=== PATIENT | male | born 1975 | race Caucasian/White ===

== ENCOUNTER 2019-08-22 15:29 | Emergency (ER) | payer OTHER, SELFPAY ==
[2019-08-22 15:30] VITALS: BP 137/86; PULSE 73; RESP 16; TEMP 36.9; O2SAT 99; BMI 34.5
--- NOTE | 2019-08-22 15:36 | EKG12_ITS ---
Test Reason : CP Blood Pressure : / mmHG Vent. Rate : 076 BPM Atrial Rate : 076 BPM P-R Int : 164 ms QRS Dur : 086 ms QT Int : 362 ms P-R-T Axes : 056 039 022 degrees QTc Int : 407 ms Normal sinus rhythm Normal ECG Confirmed by MORRIS ALFARO, ARGENIS ([id number]), assistant production editor BROOKS STACK ([id number]) on 08/26/2019 3:16:59 PM Referred By: LISA Confirmed By:CARSON CACERES MD
--- NOTE | 2019-08-22 15:37 | ED.DCSUM_ITS ---
History of Present Illness Chief Complaint: Dizziness Informant: Patient Onset: Today Context: Gradual Onset Timing: Intermittent Current Severity: Mild Maximum Severity: Moderate Narrative: The patient is a 43-year-old male with medical history significant for cochlear implant who is not on any daily medication that presents to the emergency department with chest pain and dizziness that has since resolved. The patient states that he woke this morning. He states that he had some tightness in his chest that was nonradiating. He states he also felt lightheaded. He states he still went to work, but today just has not felt himself. He denies any exertional component to his chest pain. He has no history of coronary vascular disease. He does not take any medications and does not smoke. He states over the past few months, he has been more fatigued, but attributed it to his age. He denies orthopnea, weight gain, or leg edema. Prior similar symptoms: No Recent Illness/Hospitalization: No Past Medical History - Allergies and Home Meds Allergies/Adverse Reactions: Allergies No Known Allergies Allergy (Verified 08/22/19 15:58) Primary Care Physician: Care Physician,No Primary [Primary Care Provider] - Prior records reviewed: Yes Past Medical History: None Surgical History: noncontributory Smoking Status: Unknown if ever smoked Review of Systems General: Denies: Chills, Fever, Sweats Eyes: Denies: Visual changes - bilaterally, Diplopia ENT: Denies: Rhinorrhea, Sore throat Cardiovascular: Reports: Chest pain. Denies: Palpitations Respiratory: Denies: Dyspnea, Cough, Dyspnea on exertion Gastrointestinal: Reports: Nausea. Denies: Abdominal pain, Vomiting, Diarrhea, Melena, Hematochezia Genitourinary: Denies: Dysuria, Hematuria, Frequency Musculoskeletal: Denies: Back pain, Extremity Pain Skin: Denies: Rash, Wounds Neurological: Denies: Headache, Weakness, Numbness Physical Exam Vital Signs/Narrative: Vital Signs Temp Pulse Resp BP Pulse Ox 08/22/19 15:30 98.4 F 73 16 137/86 H 99 Inital Vital Signs reviewed: Yes General: Well nourished, Well developed, No Acute Distress Head: Normocephalic, Atraumatic Eyes: Perrl, EOMI ENT: Moist mucous membranes, No rhinorrhea Neck: Supple, Nontender Cardiovascular: Regular rate, Regular rhythm, No murmurs Respiratory: No distress, CTA bilaterally, Chest nontender Abdomen: Soft, Nontender, Nondistended, Normal bowel sounds Back: Nontender, Normal Inspection Extremities: Nontender, No edema Skin: Normal color, No rash Neurological: Alert, Oriented x3, Cranial nerves II-XII grossly intact, Normal Strength, Normal Sensation Psychological: Normal affect, Normal Mood Diagnostic/Tx/Re-eval Clinical Impression(s) from Imaging Studies Chest X-Ray 08/22/19 15:40 IMPRESSION: Normal x-ray examination of the chest. Electronically Signed: Kyler Elkins MD at 16:48 EDT , Service support , Abnormal Lab Results 08/22/19 08/22/19 15:50 15:50 WBC 9.0 RBC 5.31 Hgb 15.6 Hct 45.8 MCV 86.3 MCH 29.4 MCHC 34.1 RDW Std Deviation 37.7 RDW Coeff of Rosie 12.0 Plt Count 258 MPV 10.3 Immature Gran % (Auto) 0.300 Neut % (Auto) 70.9 H Lymph % (Auto) 20.4 [place] % (Auto) 7.4 Eos % (Auto) 0.8 Baso % (Auto) 0.2 Absolute Neuts (auto) 6.3 Absolute Lymphs (auto) 1.83 Nucleated RBC % 0 Sodium 140 Potassium 3.7 Chloride 107 Carbon Dioxide 27.0 Anion Gap 6 BUN 11 Creatinine 0.99 Estim Creat Clear Calc 100.36 Est GFR (MDRD) Af Amer 106 Est GFR (MDRD) Non-Af 88 BUN/Creatinine Ratio 11.1 Glucose 92 Calcium 9.1 Magnesium 2.3 Troponin I < 0.015 TSH 0.83 - Rhythm Strip Rhythm Strip: Sinus Rhythm Ectopy: None - EKG Initial EKG Interpretation: Sinus Rhythm, No Acute Injury Pattern Prior: No Prior - Medical Decision Making The patient presents to the emergency department chest pain that is since resol waldemar. He said that he was mildly nauseated and dizzy with it. It was nonradiating. He denies any fevers or chills. EKG was obtained which was sinus rhythm without acute ischemic change. The patient has a heart score of 1. He has been pain-free since this morning. His cardiac enzymes are negative. Chest x-ray shows no evidence of volume overload. Metabolic work-up including TSH and magnesium was unremarkable. On reevaluation, the patient is feeling improved. At this point, I do feel it is safe for outpatient follow-up. He will be discharged home. Impression 1. Transient chest pain-resolved ED Disposition - Plan for ED Patient: Instructions: ED Dizziness [facility] Referrals: Care Physician,No Primary [Primary Care Provider] -
--- NOTE | 2019-08-22 15:40 | RAD_ITS ---
STUDY: X-RAY CHEST REASON FOR EXAM: Male, 43 years old. cp, dizziness this am TECHNIQUE: AP portable COMPARISON: August 06, 2014 FINDINGS: The lungs are clear and expanded. There is no demonstrated pleural abnormality. Normal size heart. Normal mediastinum and kamila. Normal visualized pulmonary arteries. Normal visualized aortic arch and descending thoracic aorta. Normal visualized thoracic spine. Normal visualized ribs, clavicles, and shoulders. There is no demonstrated abnormality of the visualized soft tissue structures of the upper abdomen. RAD/Chest 1 View (Portable) IMPRESSION: Normal x-ray examination of the chest. Electronically Signed: Kyler Elkins MD at 16:48 EDT , Service support ,
[2019-08-22] MEDS: Aspirin 81 MG TAB.CHEW 324 MG PO (15:43)
[2019-08-22] MEDS: 0.9% Normal Saline 1,000 ML 150 ML IV (15:57)
[2019-08-22 16:01] VITALS: O2SAT 99
[2019-08-22 16:06] LABS: Absolute Lymphocyte Count 1.83 X10^3/uL (0.83-4.51); Absolute Neutrophil Count 6.3 X10^3/uL (2.0-7.7); Basophil# 0.02 X10^3/uL; Basophil% 0.2 % (0-1); Eosinophil# 0.07 X10^3/uL; Eosinophils% 0.8 % (0-5); Hematocrit 45.8 % (40-54); Hemoglobin 15.6 g/dL (13.0-16.5); Lymphocyte # 1.83 X10^3/ul (4.0); Lymphocyte % 20.4 % (19-41); Mean Corp Hgb Conc 34.1 g/dL (32-36); Mean Corpuscular Hgb 29.4 pg (27.0-32.0); Mean Corpuscular Volume 86.3 fL (80-94); Mean Platelet Vol. 10.3 fl (6.2-12.0); Monocyte# 0.66 X10^3/uL; Monocyte% 7.4 % (0-10); NRBC Flagged by Analyzer 0 % (0-5); Neutrophil # 6.34 X10^3/uL (2.7-7.7); Neutrophil % 70.9 % (47-70); Platelet Count 258 K/mm3 (150-450); RBC Distribution Width SD 37.7 fl (35.1-43.9); Red Blood Count 5.31 M/mm3 (4.6-6.2)
[2019-08-22 16:26] LABS: Anion Gap 6 (5-15); BUN 11 mg/dL (7-18); BUN/Creat Ratio 11.1 RATIO (10-20); Calcium,Total 9.1 mg/dL (8.5-10.1); Chloride 107 mmol/L (98-107); Creatinine, Serum 0.99 mg/dL (0.70-1.30); EST Glomerular Filtration Rate 88 mL/min (>60); Est Glom Filt Rate - Afr Amer 106 mL/min (>60); Estimated Creatinine Clearance 100.36 ml/min; Glucose 92 mg/dL (74-106); Magnesium 2.3 mg/dL (1.6-2.6); Potassium 3.7 mmol/L (3.5-5.1); Sodium Level 140 mmol/L (136-145); Thyroid Stim Hormone (TSH) 0.83 uIU/mL (0.358-3.74)
[2019-08-22 17:55] VITALS: BP 145/74; PULSE 61; RESP 18; O2SAT 99
== END 2019-08-22 17:56 | disposition home or self-care (01) ==
PROVIDERS: Emergency Provider Emergency Medicine
DX: R07.89 Other chest pain (principal); R42 Dizziness and giddiness; R11.0 Nausea
CPT/HCPCS: 71045; 80048; 83735; 84443; 84484; 85025; 93005; 96360; 96361; 99284; J7030; A4216

== ENCOUNTER → 2021-09-01 | Outpatient (CLI) | payer OTHER, SELFPAY ==
[2021-09-01 12:10] LABS: Absolute Lymphocyte Count 1.74 X10^3/uL (0.83-4.51); Basophil# 0.03 X10^3/uL; Basophil% 0.4 % (0-1); Eosinophil# 0.18 X10^3/uL; Eosinophils% 2.4 % (0-5); Hemoglobin 15.4 g/dL (13.0-16.5); Lymphocyte # 1.74 X10^3/ul (0.83-4.51); Mean Corp Hgb Conc 34.2 g/dL (32-36); Mean Corpuscular Hgb 29.7 pg (27.0-32.0); Mean Corpuscular Volume 86.9 fL (80-94); Mean Platelet Vol. 11.5 fl (6.2-12.0); Monocyte# 0.61 X10^3/uL; Monocyte% 8.1 % (0-10); NRBC Flagged by Analyzer 0 % (0-5); Neutrophil # 4.95 X10^3/uL (2.7-7.7); Neutrophil % 65.6 % (47-70); Platelet Count 257 K/mm3 (150-450); RBC Distribution Width SD 38.5 fl (35.1-43.9); Red Blood Count 5.18 M/mm3 (4.6-6.2); White Blood Count 7.6 K/mm3 (4.4-11.0)
[2021-09-01 12:45] LABS: ALB/GLOB Ratio 1.1 RATIO (0.9-2.4); AST(SGOT) 17 U/L (15-37); Alanine Aminotransfer ALT/SGPT 35 U/L (16-61); Albumin, Serum 3.8 g/dL (3.2-5.0); Alkaline Phosphatase 69 U/L (45-117); Anion Gap 4 (5-15); BUN 16 mg/dL (7-18); BUN/Creat Ratio 15.4 RATIO (10-20); Calcium,Total 8.8 mg/dL (8.5-10.1); Chloride 107 mmol/L (98-107); Cholesterol 176 mg/dL (200); Creatinine, Serum 1.04 mg/dL (0.70-1.30); EST Glomerular Filtration Rate 82 mL/min (>60); Est Glom Filt Rate - Afr Amer 100 mL/min (>60); Globulin 3.6 g/dL (2.2-4.2); Glucose 94 mg/dL (74-106); High Density Lipoprotein 39 mg/dL; Potassium 4.2 mmol/L (3.5-5.1); Protein, Total 7.4 g/dL (6.4-8.2); Sodium Level 140 mmol/L (136-145); Thyroid Stim Hormone (TSH) 1.58 uIU/mL (0.358-3.74); Triglycerides 146 mg/dL; Very Low Density Lipoprotein 29 mg/dL (5-40)
== END | disposition home or self-care (01) ==
LOC: BIMLAB 08:36
PROVIDERS: PCP Internal Medicine; Referring Provider Nurse Practitioner Family; Visit Provider Nurse Practitioner Family
DX: Z00.00 Encounter for general adult medical examination without abnormal findings (principal)
CPT/HCPCS: 36415; 80053; 80061; 84443; 85025

== ENCOUNTER 2022-04-30 19:45 | Emergency (ER) | payer OTHER, SELFPAY ==
[2022-04-30 19:45] VITALS: BP 157/82; PULSE 79; RESP 16; TEMP 36.8; O2SAT 98; BMI 35.2
--- NOTE | 2022-04-30 20:09 | EX.ED.DYSGE1 ---
HPI History of Present Illness Chief Complaint: Bite Detail of Chief Complaint: Cat bite left hand Informant: patient Onset/Context/Timing Onset: Yesterday Context: Gradual Onset Narrative Narrative: Patient present secondary to cat bite to the left hand. He was giving his cat a bath last night. He grabbed his hand and turn biting him on the left third MCP joint. This morning he noted some redness and went to the [facility]. His tetanus was updated and he was given Augmentin. He only had 1 dose. He presents to the ER tonight secondary to the redness. He is still able to make a tight fist and fully extend his fingers and wrist. [facility] Medical History Cochlear implant in place Encounter for preventative adult health care examination GABINO (obstructive sleep apnea) Seasonal allergies Sleep apnea Home Medications ascorbate calcium (vitamin C) 500 mg tablet 500 mg PO DAILY 08/31/21 [History Last Taken Unknown] cetirizine 10 mg capsule (Zyrtec) 10 mg PO DAILY PRN 08/31/21 [History Last Taken Unknown] cholecalciferol (vitamin D3) 25 mcg (1,000 unit) capsule 25 mcg PO DAILY 08/31/21 [History Last Taken Unknown] loratadine 10 mg tablet (Claritin) 10 mg PO DAILY 08/31/21 [History Last Taken Unknown] mecobalamin (vitamin B12) 5,000 mcg lozenge 5,000 mcg PO DAILY 08/31/21 [History Last Taken Unknown] multivitamin 1 tab PO DAILY 08/31/21 [History Last Taken Unknown] zinc 50 mg tablet 50 mg PO DAILY 08/31/21 [History Last Taken Unknown] amoxicillin 875 mg-potassium clavulanate 125 mg tablet 1 tab PO BID #20 tabs 04/30/22 [Rx Last Taken Unknown] Allergy/AdvReac Type Severity Reaction Status Date / Time No Known Allergies Allergy Verified 04/30/22 19:54 Family History Other Heart disease Surgical History History of hernia repair History of tonsillectomy and adenoidectomy Social History Smoking Status: Never smoker alcohol intake: never substance use type: does not use what type of physical activity do you participate in: none ROS ROS ED Constitutional Constitutional ED: Denies chills or fever(s) Eyes Eyes: Denies change in vision or discharge from eye(s) ENT ENT ED: Denies discharge from eye(s), rhinorrhea or sore throat Cardiovascular Cardiovascular: Denies chest pain or palpitations Respiratory/Chest Respiratory/Chest: Denies cough or dyspnea Gastrointestinal Gastrointestinal: Denies abdominal pain, nausea or vomiting Genitourinary Genitourinary ED: Denies dysuria Musculoskeletal Musculoskeletal: Reports extremity pain; Denies back pain Integumentary Reports Abrasions and rash Neurologic Neurologic: Denies headache(s) or weakness Psychiatric Psychiatric: Denies anxiety or depression Allergic/Immunologic Allergic/Immunologic ED: Denies lip swelling or urticaria EXAM Physical Exam Const Vital Signs: 04/30/22 19:45 Temperature 98.2 F Temperature Source Temporal Pulse Rate 79 Respiratory Rate 16 Blood Pressure 157/82 H Blood Pressure Mean 107 Pulse Ox 98 Oxygen Delivery Method Room Air Positive well nourished and well developed General Appearance ED: well developed HEENT Reports normocephalic and head/scalp atraumatic Eyes PERRL and EOMs intact bilaterally Neck supple Chest Wall inspection of chest normal and palpation of chest normal Resp normal respiratory effort and clear to auscultation bilaterally Cardio regular rate and regular rhythm GI normal to inspection, nondistended, normoactive bowel sounds Palpation: soft Extremity Extremity Narrative: 3 puncture wounds to the proximal phalanx of the left third finger. Erythema noted measuring approximate 3 x 5 cm. Patient has full range of motion at the joints. He is able to fully flex and extend his wrist. Good cap refill and sensation are noted distally. Neuro oriented x3 and no sensory deficits noted Sensorium / Orientation: alert Motor Exam: strength 5/5 throughout Psych mental status grossly normal Skin Skin Narrative: As noted above. MDM MDM MDM Narrative Medical decision making narrative: Lab work obtained including inflammatory markers. Patient is given a dose of IV Unasyn. Lab Data Attestation: I reviewed the patient's lab results. Labs: Laboratory Results - last 24 hr 04/30/22 04/30/22 20:20 20:20 WBC 11.1 H RBC 5.04 Hgb 15.4 Hct 43.9 MCV 87.1 MCH 30.6 MCHC 35.1 RDW Std Deviation 38.8 RDW Coeff of Rosie 12.1 Plt Count 256 MPV 10.8 Immature Gran % (Auto) 0.300 Neut % (Auto) 63.7 Lymph % (Auto) 26.4 [place] % (Auto) 7.6 Eos % (Auto) 1.7 Baso % (Auto) 0.3 Absolute Neuts (auto) 7.1 Absolute Lymphs (auto) 2.92 Nucleated RBC % 0 ESR 6 Sodium 139 Potassium 3.9 Chloride 108 H Carbon Dioxide 27.0 Anion Gap 4 L BUN 16 Creatinine 1.11 Estim Creat Clear Calc 86.77 Est GFR (MDRD) Af Amer 92 Est GFR (MDRD) Non-Af 76 BUN/Creatinine Ratio 14.4 Glucose 128 H Calcium 8.3 L C-React Prot Ext Range < 2.90 Treatment and Re-Evaluation Narrative: Patient has had his hand elevated on the side rail of the bed during his ED stay. On repeat evaluation erythema is improved. Area is outlined with surgical marker. CBC reveals a slightly elevated white count at 11.1 with normal differential. Sed rate and CRP are both normal. Chemistry studies are unremarkable. At this time I feel the patient has at most a cellulitis. I do not believe he has a deep tissue infection. I spoke with Fernandez Hua, nurse practitioner for the patient's primary care physician. He will see the patient in the office on Sunday. If the patient is worse tomorrow, Sunday, he is to call the office and he will be seen by one of the other providers. Patient will continue the Augmentin that was previously prescribed for him. Discharge Plan Triage Chief Complaint: Bite ED Provider: Kylee Holman Dx/Rx/DC Orders Clinical Impression: Cat bite of hand, Cellulitis Instructions: ED Cat Bite, ED Cellulitis Prescriptions: No Action Zyrtec 10 mg capsule 10 mg PO DAILY PRN loratadine [Claritin] 10 mg tablet 10 mg PO DAILY multivitamin Tablet 1 tab PO DAILY mecobalamin (vitamin B12) 5,000 mcg lozenge 5,000 mcg PO DAILY Rx Instructions: allow to dissolve in mouth OR may chew lightly before swallowing cholecalciferol (vitamin D3) 25 mcg (1,000 unit) capsule 25 mcg PO DAILY ascorbate calcium (vitamin C) 500 mg tablet 500 mg PO DAILY zinc 50 mg tablet 50 mg PO DAILY amoxicillin-pot clavulanate 875-125 mg tablet 1 tab PO BID Qty: 20 0RF Stand Alone Forms: ED Work / School Excuse Primary Care Provider: Vandana Young Referrals: Vandana Young MD [Primary Care Provider] - Fernandez Hua NP, [facility] [Med Staff - Adv Practice Prof] - 2 Days Disposition Disposition: Home, Self Care
[2022-04-30 20:37] LABS: Absolute Lymphocyte Count 2.92 X10^3/uL (0.83-4.51); Absolute Neutrophil Count 7.1 X10^3/uL (2.0-7.7); Basophil# 0.03 X10^3/uL; Basophil% 0.3 % (0-1); Eosinophil# 0.19 X10^3/uL; Eosinophils% 1.7 % (0-5); Hematocrit 43.9 % (40-54); Hemoglobin 15.4 g/dL (13.0-16.5); Lymphocyte # 2.92 X10^3/ul (0.83-4.51); Lymphocyte % 26.4 % (19-41); Mean Corp Hgb Conc 35.1 g/dL (32-36); Mean Corpuscular Hgb 30.6 pg (27.0-32.0); Mean Corpuscular Volume 87.1 fL (80-94); Mean Platelet Vol. 10.8 fl (6.2-12.0); Monocyte# 0.84 X10^3/uL; Monocyte% 7.6 % (0-10); NRBC Flagged by Analyzer 0 % (0-5); Neutrophil # 7.05 X10^3/uL (2.7-7.7); Neutrophil % 63.7 % (47-70); Platelet Count 256 K/mm3 (150-450); RBC Distribution Width CV 12.1 % (11.6-14.6); RBC Distribution Width SD 38.8 fl (35.1-43.9); Red Blood Count 5.04 M/mm3 (4.6-6.2); White Blood Count 11.1 K/mm3 (4.4-11.0)
[2022-04-30 20:52] LABS: Erythrocyte Sedimentation Rate 6 mm/hr (0-20)
[2022-04-30 21:34] LABS: Anion Gap 4 (5-15); BUN 16 mg/dL (7-18); BUN/Creat Ratio 14.4 RATIO (10-20); CRP < 2.90 mg/L (0.0-3.0); Calcium,Total 8.3 mg/dL (8.5-10.1); Chloride 108 mmol/L (98-107); Creatinine, Serum 1.11 mg/dL (0.70-1.30); EST Glomerular Filtration Rate 76 mL/min (>60); Est Glom Filt Rate - Afr Amer 92 mL/min (>60); Estimated Creatinine Clearance 86.77 ml/min; Glucose 128 mg/dL (74-106); Potassium 3.9 mmol/L (3.5-5.1); Sodium Level 139 mmol/L (136-145)
[2022-04-30 22:14] VITALS: RESP 18
== END 2022-04-30 22:21 | disposition home or self-care (01) ==
PROVIDERS: Emergency Provider Emergency Medicine; PCP Internal Medicine; Visit Provider Emergency Medicine
DX: S61.452A Open bite of left hand, initial encounter (principal); W55.01XA Bitten by cat, initial encounter; G47.33 Obstructive sleep apnea (adult) (pediatric); L03.114 Cellulitis of left upper limb
CPT/HCPCS: 80048; 85025; 85652; 86140; 96365; 99283; J7050; A4216; J0295

== ENCOUNTER → 2022-09-01 | Outpatient (CLI) | payer OTHER, SELFPAY ==
[2022-09-01 12:13] LABS: Absolute Lymphocyte Count 1.55 X10^3/uL (0.83-4.51); Absolute Neutrophil Count 4.1 X10^3/uL (2.0-7.7); Basophil# 0.03 X10^3/uL; Basophil% 0.5 % (0-1); Eosinophil# 0.17 X10^3/uL; Eosinophils% 2.7 % (0-5); Hematocrit 46.9 % (40-54); Hemoglobin 15.7 g/dL (13.0-16.5); Lymphocyte # 1.55 X10^3/ul (0.83-4.51); Lymphocyte % 24.4 % (19-41); Mean Corp Hgb Conc 33.5 g/dL (32-36); Mean Corpuscular Hgb 29.6 pg (27.0-32.0); Mean Corpuscular Volume 88.3 fL (80-94); Mean Platelet Vol. 11.2 fl (6.2-12.0); Monocyte# 0.48 X10^3/uL; Monocyte% 7.6 % (0-10); NRBC Flagged by Analyzer 0 % (0-5); Neutrophil # 4.09 X10^3/uL (2.7-7.7); Neutrophil % 64.5 % (47-70); Platelet Count 268 K/mm3 (150-450); RBC Distribution Width CV 12.3 % (11.6-14.6); RBC Distribution Width SD 39.5 fl (35.1-43.9); Red Blood Count 5.31 M/mm3 (4.6-6.2); White Blood Count 6.3 K/mm3 (4.4-11.0)
[2022-09-01 12:50] LABS: Vitamin B12 434 pg/mL (211-911); Vitamin D,25 Hydroxy 68.2 ng/mL
[2022-09-01 13:08] LABS: ALB/GLOB Ratio 1.1 RATIO (0.9-2.4); AST(SGOT) 20 U/L (15-37); Alanine Aminotransfer ALT/SGPT 38 U/L (16-61); Alkaline Phosphatase 66 U/L (45-117); Anion Gap 6 (5-15); BUN 14 mg/dL (7-18); BUN/Creat Ratio 14.5 RATIO (10-20); Chloride 108 mmol/L (98-107); Cholesterol 203 mg/dL (200); Creatinine, Serum 0.97 mg/dL (0.70-1.30); EST Glomerular Filtration Rate 89 mL/min (>60); Est Glom Filt Rate - Afr Amer 108 mL/min (>60); Globulin 3.7 g/dL (2.2-4.2); Glucose 99 mg/dL (74-106); High Density Lipoprotein 46 mg/dL; Potassium 4.3 mmol/L (3.5-5.1); Protein, Total 7.7 g/dL (6.4-8.2); Sodium Level 140 mmol/L (136-145); Thyroid Stim Hormone (TSH) 1.28 uIU/mL (0.358-3.74); Triglycerides 110 mg/dL; Very Low Density Lipoprotein 22 mg/dL (5-40)
[2022-09-02 10:08] LABS: Lyme Scn Total Ab w/Rflx Negative (Negative)
== END | disposition home or self-care (01) ==
LOC: BIMLAB 08:30
PROVIDERS: PCP Internal Medicine; Referring Provider Nurse Practitioner Family; Visit Provider Nurse Practitioner Family
DX: Z00.00 Encounter for general adult medical examination without abnormal findings (principal); E56.9 Vitamin deficiency, unspecified
CPT/HCPCS: 36415; 80053; 80061; 82306; 82607; 84443; 85025; 86618

== ENCOUNTER → 2024-05-22 | Outpatient (CLI) | payer OTHER, SELFPAY ==
[2024-05-22 06:58] LABS: Absolute Lymphocyte Count 1.57 X10^3/uL (0.83-4.51); Absolute Neutrophil Count 4.2 X10^3/uL (2.0-7.7); Basophil# 0.03 X10^3/uL; Basophil% 0.5 % (0-1); Eosinophil# 0.12 X10^3/uL; Eosinophils% 1.9 % (0-5); Hematocrit 43.9 % (40-54); Hemoglobin 14.7 g/dL (13.0-16.5); Lymphocyte # 1.57 X10^3/ul (0.83-4.51); Lymphocyte % 24.3 % (19-41); Mean Corp Hgb Conc 33.5 g/dL (32-36); Mean Corpuscular Hgb 29.5 pg (27.0-32.0); Mean Platelet Vol. 10.3 fl (6.2-12.0); Monocyte# 0.54 X10^3/uL; Monocyte% 8.3 % (0-10); NRBC Flagged by Analyzer 0 % (0-5); Neutrophil # 4.17 X10^3/uL (2.7-7.7); Neutrophil % 64.4 % (47-70); Platelet Count 219 K/mm3 (150-450); RBC Distribution Width CV 12.9 % (11.6-14.6); RBC Distribution Width SD 41.3 fl (35.1-43.9); Red Blood Count 4.99 M/mm3 (4.6-6.2); White Blood Count 6.5 K/mm3 (4.4-11.0)
[2024-05-22 07:52] LABS: ALB/GLOB Ratio 1.2 RATIO (0.9-2.4); AST(SGOT) 20 U/L (15-37); Alanine Aminotransfer ALT/SGPT 33 U/L (16-61); Albumin, Serum 3.8 g/dL (3.2-5.0); Alkaline Phosphatase 78 U/L (45-117); Anion Gap 6 (5-15); BUN 21 mg/dL (7-18); BUN/Creat Ratio 18.8 RATIO (10-20); Calcium,Total 9.3 mg/dL (8.5-10.1); Chloride 107 mmol/L (98-107); Creatinine, Serum 1.12 mg/dL (0.70-1.30); EST Glomerular Filtration Rate 75 mL/min (>60); Est Glom Filt Rate - Afr Amer 90 mL/min (>60); Globulin 3.3 g/dL (2.2-4.2); Glucose 88 mg/dL (74-106); LDH 132 U/L (87-241); Potassium 4.3 mmol/L (3.5-5.1); Protein, Total 7.1 g/dL (6.4-8.2); Sodium Level 140 mmol/L (136-145)
[2024-05-23 04:07] LABS: AFP, Tumor Marker < 1.8 ng/mL (0.0-6.9); Carcinoembryonic Antigen 1.2 ng/mL (0.0-4.7)
[2024-05-23 11:08] LABS: ANTINUCLEAR ANTIBODIES DIRECT Negative (Negative); HCG BETA-SUBUNIT QUANT. < 1 mIU/mL (0-3)
== END | disposition home or self-care (01) ==
DX: R53.83 Other fatigue (principal); R53.81 Other malaise; D84.9 Immunodeficiency, unspecified
CPT/HCPCS: 36415; 80053; 82105; 82378; 83615; 84702; 85025; 86038

== ENCOUNTER → 2024-06-02 | Outpatient (CLI) | payer OTHER, SELFPAY ==
--- NOTE | 2024-06-02 16:40 | US_ITS ---
PROCEDURE: Testicular ultrasound. REASON FOR EXAM: Benign testicular cysts TECHNIQUE: Flores scale imaging of the scrotal contents. COMPARISON: None available FINDINGS: The right testicle is 4.3 x 3.5 x 2.5 cm. The right epididymis is 1.3 cm. The left testicle is 3.5 x 2.8 x 2.5 cm. The left epididymis is 1.3 cm. Small bilateral scrotal hydroceles. No significant varicocele. The testicles are fairly homogeneous in echotexture, without solid intratesticular mass. A few scattered tiny calcifications in the right testicle. Heterogeneous tissue posterior to the left testicle may represent enlargement of the body of the epididymis, with some internal blood flow. US/Testicular with Arterial Flow IMPRESSION: No evidence of testicular torsion or intratesticular mass. Small bilateral scrotal hydroceles. Heterogeneous tissue posterior to the left testicle, with some internal blood f low, may represent enlargement of the body of the left epididymis. This could represent mild acute left epididymitis. Suggest c orrelation with clinical exam findings. [facility]
== END | disposition home or self-care (01) ==
PROVIDERS: PCP Nurse Practitioner Family; Referring Provider Nurse Practitioner Family; Visit Provider Nurse Practitioner Family
DX: N44.2 Benign cyst of testis (principal)
CPT/HCPCS: 76870; 93976

== ENCOUNTER 2024-06-19 11:17 | Emergency (ER) | payer OTHER, SELFPAY ==
[2024-06-19 11:18] VITALS: BP 140/80; PULSE 68; RESP 15; TEMP 36.8; O2SAT 100; BMI 25.4
--- NOTE | 2024-06-19 11:42 | EX.ED.DYSGE1 ---
HPI History of Present Illness Chief Complaint: Flank Pain Detail of Chief Complaint: Pain left flank rating to groin and bump in groin Informant: patient Onset/Context/Timing Onset: Days (Less than 2 days ago) Context: Sudden Onset Timing: Continuous Quality: Pain Location: T12-L1 dermatome Current Severity: Moderate Maximum Severity: Severe Worsened by: Touch Relieved by: Nothing Associated Symptoms Associated Symptoms: Lump in groin Narrative Narrative: Patient is a 48-year-old male. He presents with pain that he localizes left flank area down to the groin and the T12-L1 dermatomal distribution. He denies dysuria, frequency, urgency or hematuria. He denies history of renal ureterolithiasis. There is no family history of renal or ureterolithiasis. He denies fever, chills night sweats. He states the lump is different than when he had a hernia on the right side that required repair. He has no history of direct or indirect trauma. Nothing makes the pain better. Nothing makes the pain worse. Prior similar symptoms: No Recent Illness/Hospitalization: No PFSH PFS Medical History GABINO (obstructive sleep apnea) Sleep apnea Encounter for preventative adult health care examination Cochlear implant in place Seasonal allergies Home Medications ?Medication ?Instructions ?Recorded ?Last Taken ?Type ascorbate calcium (vitamin C) 500 500 mg PO DAILY 08/31/21 Unknown History mg tablet cetirizine 10 mg capsule (Zyrtec) 10 mg PO DAILY PRN 08/31/21 Unknown History cholecalciferol (vitamin D3) 25 25 mcg PO DAILY 08/31/21 Unknown History mcg (1,000 unit) capsule mecobalamin (vitamin B12) 5,000 5,000 mcg PO DAILY 08/31/21 Unknown History mcg lozenge multivitamin 1 tab PO DAILY 08/31/21 Unknown History zinc 50 mg tablet 50 mg PO DAILY 08/31/21 Unknown History acyclovir 800 mg tablet 800 mg PO 5X/DAY #35 TABLETS 06/19/24 Unknown Rx gabapentin 300 mg capsule 300 mg PO TID #90 caps 06/19/24 Unknown Rx prednisone 10 mg tablet 10 mg PO UD #33 tabs 06/19/24 Unknown Rx Allergy/AdvReac Type Severity Reaction Status Date / Time No Known Allergies Allergy Verified 06/19/24 11:19 Family History Other Heart disease Surgical History History of tonsillectomy and adenoidectomy History of hernia repair Social History Smoking Status: Never smoker alcohol intake: never substance use type: does not use what type of physical activity do you participate in: none ROS ROS ED Constitutional Constitutional ED: Denies chills, fever(s), subjective, sweats or weight loss Gastrointestinal Gastrointestinal: Denies abdominal pain, diarrhea, melena, nausea or vomiting Genitourinary Genitourinary ED: Denies dysuria, hematuria or urinary frequency Musculoskeletal Musculoskeletal: Reports back pain; Denies arthralgias, myalgias or neck pain Integumentary Reports other Details: Patient did not mention he had a rash until I performed physical exam to determine what the lump was and saw that he had a herpetic rash consistent with herpes varicella-zoster. It is in the T12-L1 distribution. Neurologic Neurologic: Denies headache(s), paresthesias or weakness Hematologic/Lymphatic Hematologic/Lymphatic: Reports systems reviewed and no addt'l complaints, except as documented EXAM Physical Exam Const Vital Signs: 06/19/24 11:18 Temperature 98.2 F Temperature Source Temporal Pulse Rate 68 Respiratory Rate 15 Blood Pressure 140/80 H Blood Pressure Mean 100 Pulse Ox 100 Oxygen Delivery Method Room Air Positive well nourished and well developed General Appearance ED: well developed and NAD HEENT Reports moist mucous membranes HEENT Narrative: Head is atraumatic normocephalic. Ears normal. Eyes PERRL and EOMs intact bilaterally General Eye ED: Yes scleral icterus Neck no lymphadenopathy, supple and no JVD Resp normal respiratory effort Cardio regular rate and regular rhythm GI normal to inspection, nondistended, normoactive bowel sounds, non-tender, non-distended and no masses; Negative for hepatosplenomegaly Palpation: soft Narrative: Patient has herpetic lesion T12-L1 distribution with inguinal lymphadenopathy. exam is otherwise unremarkable. Back/Spine no CVA tenderness Extremity normal to inspection General Extremety ED: Negative for edema General Extremity: Negative for edema Neuro oriented x3 and CN's II-XII intact bilaterally Sensorium / Orientation: alert Psych mental status grossly normal Skin Skin Narrative: Rash consistent with herpes varicella-zoster. MDM MDM MDM Narrative Medical decision making narrative: Differential diagnosis was muscular pain versus ureterolithiasis versus pain of unknown etiology. In light of the fact that he has merlyn of adenopathy with a rash that is consistent with herpes varicella-zoster and is only on the left side does not pass midpoint he was treated with acyclovir, prednisone and gabapentin. There is no indication for laboratory testing or imaging. Treatment and Re-Evaluation :: Patient received his first dose of acyclovir and gabapentin in the emergency department. Discharge Plan Triage Chief Complaint: Flank Pain ED Provider: Joseph Cain Dx/Rx/DC Orders Clinical Impression: VZV (varicella-zoster virus) infection, Inguinal lymphadenopathy Instructions: ED Chickenpox (Adult) Prescriptions: New acyclovir 800 mg tablet 800 mg PO 5X/DAY Qty: 35 0RF gabapentin 300 mg capsule 300 mg PO TID Qty: 90 0RF prednisone 10 mg tablet 10 mg PO UD Qty: 33 0RF Rx Instructions: Take 4 tablets daily for 3 days, then 3 daily for 3 days, then 2 daily for 3 days, then 1 a day for 3 days then 1 QOD for 3 doses. No Action Zyrtec 10 mg capsule 10 mg PO DAILY PRN multivitamin Tablet 1 tab PO DAILY mecobalamin (vitamin B12) 5,000 mcg lozenge 5,000 mcg PO DAILY Rx Instructions: allow to dissolve in mouth OR may chew lightly before swallowing cholecalciferol (vitamin D3) 25 mcg (1,000 unit) capsule 25 mcg PO DAILY ascorbate calcium (vitamin C) 500 mg tablet 500 mg PO DAILY zinc 50 mg tablet 50 mg PO DAILY Primary Care Provider: Fernandez Hua Referrals: Fernandez Hua, [employer] [Primary Care Provider] - 10-14 Days if not better Print Language: Turkmen Disposition Disposition: Home, Self Care
[2024-06-19] MEDS: Acyclovir 800 MG Tablet PO (12:01)
[2024-06-19] MEDS: Gabapentin 100 MG Capsule 200 MG PO (12:01)
== END 2024-06-19 12:06 | disposition home or self-care (01) ==
PROVIDERS: Emergency Provider Emergency Medicine; PCP Nurse Practitioner Family; Visit Provider Emergency Medicine
DX: R10.9 Unspecified abdominal pain (principal); R59.0 Localized enlarged lymph nodes; B02.1 Zoster meningitis
CPT/HCPCS: 99282

== ENCOUNTER → 2024-08-28 | Outpatient (CLI) | payer OTHER, SELFPAY ==
[2024-08-28 12:42] LABS: Color, Urine Yellow (Yellow); Glucose, Dipstick Normal (Normal); Ketone-Dipstick Negative (Negative); Leukocyte Esterase-Dipstick Negative /ul (Negative); Nitrite-Dipstick Negative (Negative); Occult Blood-Urine Negative /ul (Negative); Protein-Dipstick 15 mg/dl (Negative); Specific Gravity, Urine 1.015 (1.002-1.030); Urine Bilirubin Dipstick Negative (Negative); Urine Clarity Clear (Clear); Urine Urobilinogen Normal (Normal)
[2024-08-28 12:49] LABS: Absolute Lymphocyte Count 1.58 X10^3/uL (0.83-4.51); Absolute Neutrophil Count 3.4 X10^3/uL (2.0-7.7); Basophil# 0.04 X10^3/uL; Basophil% 0.7 % (0-1); Eosinophil# 0.17 X10^3/uL; Lymphocyte # 1.58 X10^3/ul (0.83-4.51); Mean Corp Hgb Conc 33.3 g/dL (32-36); Mean Corpuscular Hgb 30.1 pg (27.0-32.0); Mean Corpuscular Volume 90.2 fL (80-94); Mean Platelet Vol. 10.5 fl (6.2-12.0); Monocyte# 0.49 X10^3/uL; Monocyte% 8.7 % (0-10); NRBC Flagged by Analyzer 0 % (0-5); Neutrophil # 3.35 X10^3/uL (2.7-7.7); Neutrophil % 59.4 % (47-70); Platelet Count 237 K/mm3 (150-450); RBC Distribution Width CV 12.9 % (11.6-14.6); RBC Distribution Width SD 42.6 fl (35.1-43.9); Red Blood Count 4.99 M/mm3 (4.6-6.2); White Blood Count 5.6 K/mm3 (4.4-11.0)
[2024-08-28 13:53] LABS: ALB/GLOB Ratio 1.7 RATIO (0.9-2.4); AST(SGOT) 57 U/L (<=37); Alanine Aminotransfer ALT/SGPT 73 U/L (<=46); Albumin, Serum 4.5 g/dL (3.5-5.0); Alkaline Phosphatase 54 U/L (40-129); Anion Gap 10 (5-15); BUN 16 mg/dL (4-19); BUN/Creat Ratio 16.1 RATIO (10-20); Calcium,Total 9.2 mg/dL (7.6-11.0); Carbon Dioxide 25.3 mmol/L (21.0-32.0); Chloride 104 mmol/L (98-108); Cholesterol 224 mg/dL (<=200); Creatinine, Serum 0.99 mg/dL (0.70-1.20); EST Glomerular Filtration Rate 94 (>60); Globulin 2.6 g/dL (2.2-4.2); Glucose 89 mg/dL (70-99); High Density Lipoprotein 62 mg/dL; Low Density Lipoprotein Calc. 151 mg/dL; PSA,Total - Annual Screen 0.51 ng/mL (0.02-4.00); Potassium 4.3 mmol/L (3.3-5.1); Sodium Level 139 mmol/L (133-145); Total Bilirubin 0.58 mg/dL (0.00-1.30); Triglycerides 54 mg/dL; Very Low Density Lipoprotein 11 mg/dL (5-40); Vitamin B12 692 pg/mL (180-914); Vitamin D,25 Hydroxy 31.3 ng/mL (30-100); cholesterol:hdl ratio screen 3.62
== END | disposition home or self-care (01) ==
LOC: VSLAB 08:46
PROVIDERS: PCP Nurse Practitioner Family; Visit Provider Nurse Practitioner Family
DX: Z00.00 Encounter for general adult medical examination without abnormal findings (principal)
CPT/HCPCS: 36415; 80053; 80061; 81002; 82306; 82607; 84153; 84443; 85025; G0103

== ENCOUNTER 2024-10-06 07:24 | Day surgery (SDC) | payer OTHER, SELFPAY ==
--- NOTE | 2024-09-26 07:58 | EKG12_ITS ---
Test Reason : PREOP Blood Pressure : */* mmHG Vent. Rate : 61 BPM Atrial Rate : 61 BPM P-R Int : 162 ms QRS Dur : 88 ms QT Int : 412 ms P-R-T Axes : 72 63 51 degrees QTcB Int : 414 ms Normal sinus rhythm Normal ECG When compared with ECG of 22-Aug-2019 15:43, No significant change was found Confirmed by SHAGUFTA ALFARO, ORLANDO ([id number]), acquisitions editor GABI AVILES ([id number]) on 09/30/2024 6:42:33 AM Referred By: Cristi Melo Confirmed By: ORLANDO EAGLE MD
[2024-10-06] VITALS (11 sets, daily range): BP systolic 111–122; BP diastolic 51–75; PULSE 60–84; RESP 14–16; TEMP 2.2–36.5; O2SAT 94–100; BMI 24.6
--- NOTE | 2024-10-06 08:14 | HP.PCM_ITS ---
History and Physical Date of Admission: 10/06/24 Intake Vital Signs 06/19/2510:18 07/29/2513:55 Height 5 ft 10 in 5 ft 10 in Weight: 193 lb 6 oz BMI 27.7 BP 125/70 H Blood Pressure Location Rt brachial Position Sitting Respiration 18 Pulse 63 Pulse Source Monitor Temp 97.4 F L Temp Source Temporal Pulse Oximetry (%) 100 Oxygen Delivery Method room air Intake Visit Reasons: Hernia Chief Complaint: Left inguinal hernia Is patient in pain?: No Allergies No Known Allergies Allergy (Verified 07/29/24 14:56) Have you fallen in the past year?: No [facility] Medical History (Updated 07/29/24 @ 14:55 by Helga Garcia LPN) Left inguinal hernia GABINO (obstructive sleep apnea) Sleep apnea Encounter for preventative adult health care examination Cochlear implant in place Seasonal allergies Surgical History History of tonsillectomy and adenoidectomy History of hernia repair Family History Other Heart disease Social History Smoking Status: Never smoker alcohol intake: never substance use type: does not use what type of physical activity do you participate in: none HPI HPI HPI: Patient is a 48-year-old male here for left inguinal hernia. The patient reports has been there for about 9 months. It bothers him when it is out. He says that it comes out after being awake for a while. He denies pain on the other side and he has had a hernia repair on the right and open fashion. ROS General General: Yes weight change; No appetite, fatigue, colon cancer, breast cancer or weakness HEENT HEENT: No difficulty swallowing, eye injury, eye surgery, swollen glands or hoarseness Endo Endocrine: No thyroid disease, diabetes mellitus, thyroid cancer, Hair loss, heat intolerance or cold intolerance Skin Skin: No rash or changing moles Musc Musculoskeletal: No back problems, arthritis, rheumatoid arthritis, gout or joint pain Cardio Cardiovascular: No murmur, pacemaker, heart disease, atrial fibrillation, high blood pressure, heart attack, heart stent, palpitations, shortness of breath with exertion or chest pain Psych Psychiatric: No depression, anxiety or hearing voices Resp Respiratory: No shortness of breath, Yes sleep apnea, No cough, No COPD, No asthma, No emphysema and No wheezing Gastro Gastrointestinal: No abdominal pain, No nausea or vomiting, No diarrhea, No constipation, No blood in stool, No acid reflux, No hemorrhoids, No ulcers, No gallbladder problem and No black,tarry stools Marcel Hematologic: No blood thinners, No blood disorders, No bleeding, No anemia and No blood clots Neuro Neurologic: No numbness, No tingling and No weakness Exam Const General: cooperative Orientation: alert and oriented x3 HENMT Head: normal to inspection Neck Neck: normal visual inspection and full ROM Chest Chest palpation & inspection: normal inspection of the chest Resp Effort & Inspection: normal respiratory effort Auscultation: clear to auscultation bilaterally Cardio Rate: regular rate Rhythm: regular rhythm GI Inspection: non-distended Palpation: soft, hernia indirect inguinal on the left and nontender Skin General: no rashes or lesions noted Neuro General: patient alert and patient oriented x3 Extrem General: full ROM Psych Appearance: grossly normal Mental Status: mental status grossly normal Assessment and Plan Assessment and Plan (1) Left inguinal hernia: Status: Acute Plan: The patient has a reducible left inguinal hernia. I discussed robotic assisted laparoscopic left inguinal hernia repair with mesh. I discussed the procedure in detail as well as the risks including but not limited to bleeding, infection, injury other organ such as the blood supply to the leg or testicle, bladder or bowel. Patient understands all the risks and is willing to proceed. Cristi Melo MD Pager: [facility] [address] [place] [address], [address] [place] [address] Office: I have examined the patient and the H&P has been reviewed. There are no clinical changes since date of exam.
[2024-10-06] MEDS: Lactated Ringers 1,000 ML 15 ML IV (08:23)
--- NOTE | 2024-10-06 08:47 | PRE.ANES_ITS ---
ASA Classification* ASA Classification ASA Classification: 2 Assessment & Plan Anesthesia* Anesthesia Assessment Anesthesia Assessment: Discussed sedation and/or anesthesia options, risks, benefits, and alternatives with patient/parents/legal guardian/POA. Questions invited. The patient/parents/legal guardian/POA seems to understand and agrees to proceed with anesthesia plan. Reviewed the physical assessment, medical history, allergy history and patient home medications list prior to surgery/procedure/anesthetic and documented any changes. Performed airway and anesthesia risk assessments. Anesthesia Type Anesthesia Type: General History Source History Obtained from:: Patient and Chart Anesthesia Focused Assessment* Temperature: 97.7 F Pulse Rate: 60 Blood Pressure: 112/69 Respiratory Rate: 16 Pulse Ox: 100 Oxygen Delivery Method: Room Air Airway Assessment Mouth opens: >3 cm Mallampati Score: III Teeth Condition: Intact Neck Range of motion (ROM): Full ROM Labs Anesthesia Preop lab: CBC WBC 5.6 K/mm3 (4.4-11.0) 08/28/24 08:46 08/28/24 RBC 4.99 M/mm3 (4.6-6.2) 08/28/24 08:46 08/28/24 Hgb 15.0 g/dL (13.0-16.5) 08/28/24 08:46 08/28/24 Hct 45.0 % (40-54) 08/28/24 08:46 08/28/24 Plt Count 237 K/mm3 (150-450) 08/28/24 08:46 08/28/24 CHEMISTRY Potassium 4.3 mmol/L (3.3-5.1) 08/28/24 08:46 08/28/24 Sodium 139 mmol/L (133-145) 08/28/24 08:46 08/28/24 Magnesium 2.3 mg/dL (1.6-2.6) 08/22/19 15:50 08/22/19 BUN 16 mg/dL (4-19) 08/28/24 08:46 08/28/24 Creatinine 0.99 mg/dL (0.70-1.20) 08/28/24 08:46 08/28/24 Glucose 89 mg/dL (70-99) 08/28/24 08:46 08/28/24 TSH 1.550 uIU/mL (0.300-4.200) 08/28/24 08:46 08/08 06/03 COAG Pre-Assessment Diagnosis/Proposed Procedure Planned Operative Procedure(s): LAP ROBOTIC INGUINAL HERNIA REPAIR WITH MESH LEFT Anesthesia History Anesthesia History - drapery counselor: Anesthesia History - drapery counselor Hx Hospitalization No 09/22/24 15:38 Any Problems With Anesthesia Yes: N,V 09/22/24 15:38 Cholinesterase deficiency No 09/22/24 15:38 You/Your Family Experience No 09/22/24 15:38 fever (hyperthermia) with Relationship Recent Exposure to Contagious No 10/06/24 08:09 Disease Does patient have nerve No 09/22/24 15:38 stimulator Patient instructed to have device shut off --Does patient have Pacemaker No 10/06/24 08:09 or ICD? When Was Last Pacemaker Check QUESTION #4 FULL TEXT: You/Your Family Experience fever (hyperthermia) with Anesthesia Last Oral Intake Last Oral intake: Last Oral Intake NPO since 20:30 10/06/24 08:09 Meds taken in AM with sips of No 10/06/24 08:09 water? Meds patient instructed to take am of surgery Any additional information?: Yes NPO since: 06:00 (Patient sip water at 6 AM) Meds taken in AM with sips of water?: No PONV PONV - drapery counselor: PONV - drapery counselor Female No 09/22/24 15:38 HX of Motion Sickness Yes 09/22/24 15:38 HX of N/V After Surgery Yes 09/22/24 15:38 Non-Smoker Yes 09/22/24 15:38 Duration of Surgery greater Yes 09/22/24 15:38 than 60 minutes Number of Risk Factors 4 09/22/24 15:38 PONV Score Severe Risk 09/22/24 15:38 Height & Weight Height & Weight: Anesthesia: Height & Weight Height 5 ft 10 in 10/06/24 08:09 Weight: 78 kg 10/06/24 08:09 Body Mass Index (BMI) 24.6 10/06/24 08:09 Respiratory Assessment Respiratory Assessment - drapery counselor: Respiratory Tract Infection Hx - drapery counselor Hx Respiratory Tract Infection No 09/22/24 15:38 STOP Sleep Apnea STOP Sleep Apnea - drapery counselor: STOP Sleep Apnea - drapery counselor Hx Hypertension No 09/22/24 15:38 Hx Sleep Apnea Yes 09/22/24 15:38 CPAP No 09/22/24 15:38 BIPAP Yes 09/22/24 15:38 Do you snore loudly (louder than talking or can be heard Do you often feel tired/ fatigued/ sleepy during daytime? Has anyone observed you stop breathing during sleep? STOP Results Positive 09/22/24 15:38 QUESTION #5 FULL TEXT : Do you snore loudly (louder than talking or can be heard through closed doors)? 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 Specify any problems Hx of Preganancy in last 3 N/A 09/22/24 15:38 Months Nurse Filling Out Transfusion [email or web address] 09/22/24 15:38 & Questions: Date: 09/22/24 09/22/24 15:38 Time: 15:39 09/22/24 15:38 Patient unable to answer at this time (ie. confused, unrespo /Reproduction History /Reproductive History - drapery counselor: /Reproductive Hx- drapery counselor Hx Now No 09/22/24 15:38 Gestational Age (in weeks): EDC: Hx Hx Para Hx Section SAB No 09/22/24 15:38 Active Medications Active Medications: Current Medications Generic Name Dose Route Start Last Admin Trade Name Freq PRN Reason Stop Dose Admin Cefazolin Sodium 2 gm/ Sodium 110 mls @ 200 mls/hr 10/06/24 09:20 Chloride IV 10/06/24 09:52 INTRAOP ONE Lactated Ringer's 1,000 mls @ 15 mls/hr 10/06/24 07:45 10/06/24 08:23 IV 15 mls/hr .Q48H TYRESE Administration PFSH Medical History Wears hearing aid Vertigo Non-smoker BiPAP (biphasic positive airway pressure) dependence History of stress test Left inguinal hernia Home Medications ?Medication ?Instructions ?Recorded ?Last Taken ?Type GALLBLADDER COMPLEX 1 cap PO DAILY 09/25/24 Unkn own History bearberry leaf 370 mg capsule (Uva 370 mg PO DAILY Unknown History Ursi) betaine HCl 300 mg tablet 300 mg PO DAILY 09/25/24 Unk nown History magnesium glycinate 100 mg (as 300 mg PO DAILY 5 Unknown History glycinate) tablet (Mag Glycinate) micro boost 1 tab PO DAILY 09/25/24 Unkn own History turmeric 400 mg capsule 400 mg PO DAILY 09/25/24 Unk nown History vitamin B complex (Complex B-100 1 tab PO DAILY Unknown History tablet,extended release) vitamin D3 125 mcg (5,000 1 cap PO DAILY 09/25/24 Unkn own History unit)-vitamin K2 180 mcg capsule zinc 50 mg tablet 50 mg PO DAILY 09/25/24 Unkn own History Allergy/AdvReac Type Severity Reaction Status Date / Time No Known Allergies Allergy Verified 10/06/24 08:08 Family History Other Heart disease Surgical History History of cochlear implant History of tonsillectomy and adenoidectomy History of hernia repair Social History Smoking Status: Never smoker alcohol intake: never substance use type: does not use what type of physical activity do you participate in: none Review of Systems (Anesthesia) ROS Narrative System reviewed and no additional complaints, except as documented.
[2024-10-06] MEDS: Cefazolin 2 GM in 0.9% Normal Saline (100mL Bag) 100 ML IV (09:20)
--- NOTE | 2024-10-06 10:13 | OP.PCM_ITS ---
Operative Report (Standard) Operative Information Date of Procedure: 10/06/24 Pre-Operative Diagnosis: Left direct inguinal hernia Post-Operative Diagnosis: Same Surgery/Procedure Performed: Laparoscopic robotic assisted left inguinal hernia repair with mesh sneller hand: Yes Industrial Tractor Driver: Gavin Wang Tasks completed by assistant professor of radiology: Opening & closing Type of Anesthesia: General/Regional RN Documented Start/Stop Times: Operation Date: 10/06/24 09:20 Case Time Into Pre-Op 10/06/24 07:31 Out of Pre-Op 10/06/24 09:00 Anesthesia Start 10/06/24 09:07 Into Room 10/06/24 09:07 Procedure Start 10/06/24 09:30 Procedure Start Time: 09:30 Procedure Stop Time: 10:20 Select all DRAINS/GRAFTS/IMPLANTS that apply: Implanted device Implanted device details: ProGrip mesh Estimated Blood Loss: 5 Specimen collected: No Description of surgery: Patient was brought back to the operating room and general anesthesia was induced. The abdomen was prepped and draped in usual sterile fashion. An incision was made superior to the umbilicus the fascia was grasped and elevated. A Veress needle was placed into the abdomen and drop test was performed. The abdomen is insufflated 15 mmHg. The needle was then removed and a port was placed. The abdomen was inspected for injuries and there were none. Next the patient was placed in Trendelenburg position. An 8 mm port was placed in the right and left lateral abdominal sidewall. The robot was then docked. An incision was made in the peritoneum in the left lower quadrant and dissection was carried inferiorly until the hernia sac was encountered and reduced. The patient had a direct and a small indirect hernia. After they were both reduced the direct hernia was closed with a #1 strata fix suture. Next a ProGrip mesh was unfolded to cover the hernia defects. Next the peritoneum was reapproximated using a running 3 OV lock suture completely covering the mesh. There was a small rent in the peritoneum. This was closed with a 3-0 Vicryl suture. The mesh was completely covered at the end of the case. Next the instruments were removed and the robot was undocked and the abdomen was allowed to desufflate and the ports were removed. The incisions were injected with local anesthetic and closed with interrupted 4-0 Monocryl sutures. Steri-Strips and bandages were applied. Scrotum was checked at the end of the case and contain both testicles. Patient was awoken and brought to PACU in stable condition tolerated the procedure well. Surgical Findings: Direct left inguinal hernia Complications Complications: No Admit VTE Documentation VTE Mechan Device Prophylaxis: SCD's
[2024-10-06] MEDS: Bupivacaine Mpf 0.5% 30 ML VIAL (10:15)
--- NOTE | 2024-10-06 10:17 | DCINST_ITS ---
Discharge Instructions Procedure Hernia Diet Discharge Diet: Light diet - advance as tolerated Activity Discharge Activity: May Not Drive (for 2-3 days or while taking narcotic pain meds.) and May Shower (with the bandage in place 1-2 days after surgery.) Lifting Restrictions: 20 pounds for 4 weeks. May return to light duty after 1 week Additional Activity Instructions:: Climbing stairs is fine, walking is encouraged. Sitting in bed may be uncomfortable. Sitting up using your lateral muscles (sitting up sideways) is usually more comfortable. Do not drive, work heavy equipment of sign legal documents for 24 hours. If your hernia repair was an inguinal repair, you may have scrotal swelling, an ice pack and/or athletic support can provide more comfort. Pain medications may cause nausea, you should typically eat light foods as you take your pain medications. Pain medications may also cause constipation. If you have difficulty with this, discuss with your doctor. Alternate ibuprofen and Tylenol for pain control, oxycodone for breakthrough pain. Dressing / Incision Call your doctor if your incision/area has: Continuous Slow Oozing, Sudden Increased Bleeding, Increased Pain/ Swelling, Increased Redness and Foul Smelling Discharge Call your doctor if you observe: Fever of 101 or Higher Suture Line Care: Avoid Pulling/Pushing and Avoid Pinching/Bending Remove Dressing in: 2 days (Remove clear bandages in 2 days, remove Steri-Strips in 7 to 10 days.) Follow Up Care Please Follow Up With: Cristi Melo MD When: Please call to schedule 2 week follow up appointment. [phone] Test Results: Test results from this visit will be discussed in further detail at your follow- up appointment, if applicable. Discharge Plan Admission Attending Provider: Cristi Melo Primary Care Provider: Fernandez Hua [facility] Instructions Print Language: Irish Discharge Orders/Prescriptions Prescriptions: New oxycodone 5 mg Tablet 5 - 10 mg PO Q4H PRN PRN (Reason: Pain Score 4-10) 5 Days Qty: 10 0RF No Action Complex B-100 Tablet Extended Release 1 tab PO DAILY Uva Ursi 370 mg capsule 370 mg PO DAILY turmeric 400 mg capsule 400 mg PO DAILY zinc 50 mg tablet 50 mg PO DAILY vitamin D3-vitamin K2 125 mcg (5,000 unit)-180 mcg capsule 1 cap PO DAILY betaine HCl 300 mg tablet 300 mg PO DAILY GALLBLADDER COMPLEX 1 cap PO DAILY Mag Glycinate 100 mg tablet 300 mg PO DAILY micro boost 1 tab PO DAILY Referrals / Follow Up: Fernandez Hua Anastasiia, [employer] D[employer]ING MACHINE TENDER-C [Primary Care Provider] - Disposition Disposition (needs filled in before D/C Order can be placed): Home, Self Care
--- NOTE | 2024-10-06 10:33 | PCM.POST.ANE ---
Anesthesia: Postop Eval I Current Vital Signs Temperature: 36 F Pulse Rate: 77 Blood Pressure: 111/61 Respiratory Rate: 14 Pulse Ox: 97 Assessment Airway patent: Yes Spontaneous unlabored respirations: Yes nausea: No Vomiting: No Anesthesia Complication: No Fluid Hydration Crystalloid volume administer (ml): 1,400 Total IV fluid infused: 1,400 Progress Note Anesthesia document: Postop Eval 1 completed: Yes
--- NOTE | 2024-10-06 10:55 | POSTOPAN2_ITS ---
Anesthesia Postop Eval I Sum Postop Eval Completion status Anesthesia document: Postop Eval 1 completed: Yes Anesthesia Postop Eval I Summary Anesthesia Postop Eval I Summary: Anesthesia Postop Eval I: Assessment Summary Airway patent Yes 10/06/24 10:33 [email or web address] Spontaneous unlabored Yes 10/06/24 10:33 [email or web address] respirations Mental status nausea No 10/06/24 10:33 [email or web address] [email or web address] Vomiting No 10/06/24 10:33 [email or web address] Anesthesia Postop Eval I: Fluid Summary Crystalloid volume administer 1,400 10/06/24 10:33 [email or web address] [email or web address] (ml) Colloids volume administered ( ml) Blood Product volume administered (ml) Total IV fluid infused 1,400 10/06/24 10:33 [email or web address] Anesthesia Postop Eval I: Summary Notes Anesthesia Complication No 10/06/24 10:33 [email or web address] Anesthesia Complication Comment: Post-operative progress note Anesthesia: Postop Eval II Evaluation Mental status: Awake Pain Level: 0 nausea: No Vomiting: No
--- NOTE | 2024-10-06 10:55 | PCM.POSTANE2 ---
Anesthesia Postop Eval I Sum Postop Eval Completion status Anesthesia document: Postop Eval 1 completed: Yes Anesthesia Postop Eval I Summary Anesthesia Postop Eval I Summary: Anesthesia Postop Eval I: Assessment Summary Airway patent Yes 10/06/24 10:33 INSIDE PLANT [email or web address] Spontaneous unlabored Yes 10/06/24 10:33 INSIDE PLANT [email or web address] respirations Mental status nausea No 10/06/24 10:33 INSIDE PLANT [email or web address] Vomiting No 10/06/24 10:33 INSIDE PLANT [email or web address] Anesthesia Postop Eval I: Fluid Summary Crystalloid volume administer 1,400 10/06/24 10:33 INSIDE PLANT [email or web address] (ml) Colloids volume administered ( ml) Blood Product volume administered (ml) Total IV fluid infused 1,400 10/06/24 10:33 INSIDE PLANT [email or web address] Anesthesia Postop Eval I: Summary Notes Anesthesia Complication No 10/06/24 10:33 INSIDE PLANT [email or web address] Anesthesia Complication Comment: Post-operative progress note Anesthesia: Postop Eval II Evaluation Mental status: Awake Pain Level: 0 nausea: No Vomiting: No
[2024-10-06] MEDS: Acetaminophen 325 MG Tablet 650 MG PO (11:36)
== END 2024-10-06 13:12 | disposition home or self-care (01) ==
LOC: SDC 07:26 → AC 07:28
PROVIDERS: PCP Nurse Practitioner Family; Referring Provider Surgery; Visit Provider Surgery
PROC: 0YQ64ZZ Repair Left Inguinal Region, Percutaneous Endoscopic Approach (ICD-10-PCS; CPT 49650; principal; 2024-10-06 09:00)
DX: K40.90 Unilateral inguinal hernia, without obstruction or gangrene, not specified as recurrent (principal)
CPT/HCPCS: 49650; S2900; 00750; 93005; C1781; J2405